=== PATIENT | male | born 1955 | race Caucasian/White ===

== ENCOUNTER 2025-09-04 10:46 | Outpatient (CLI) | payer MEDICARE | END 2025-09-04 10:47 | disposition home or self-care (01) | LOC: CSHCT 10:46 | PROVIDERS: ATTEND Family Medicine | DX: M43.16 Spondylolisthesis, lumbar region (principal); N20.0 Calculus of kidney; M48.061 Spinal stenosis, lumbar region without neurogenic claudication; M51.26 Other intervertebral disc displacement, lumbar region; M48.07 Spinal stenosis, lumbosacral region; N26.1 Atrophy of kidney (terminal); N28.1 Cyst of kidney, acquired; K80.20 Calculus of gallbladder without cholecystitis without obstruction; K57.30 Diverticulosis of large intestine without perforation or abscess without bleeding | CPT/HCPCS: 72148; 74176 ==